=== PATIENT | male | born 1980 | race Caucasian/White ===

== ENCOUNTER → 2020-05-08 07:37 | Outpatient (REF) | payer OTHER, SELFPAY ==
--- NOTE | 2020-05-08 07:43 | CA_ITS ---
Transthoracic Echocardiogram Patient (Last, First, Middle): River Holguin J Gender: Male Date of : 1980 Age: 39 Procedure Date: 05/08/2020 Procedure Type: Transthoracic Echocardiogram Location: OP Height: 182.88 cm Weight: 154.22 kg BSA: 2.67 m2 Heart Rate: bpm BP: 104 / 78 mmHg Stone Grader: Referring MD: Pratik Covarrubias MD Symptoms: SVT Conclusions: - Technically limited study. Cannot comment about regional wall motion despite contrast use. - Normal left ventricular size and systolic function. - Moderately elevated right atrial pressure. Severe pulmonary hypertension is present. - The inferior vena cava is dilated and collapses less than 50% with inspiration. - There is abnormal septal motion with excessive respiratory change. - There is normal right ventricular systolic function. Right ventricle appears mildly dilated. Findings Procedure Information Contrast agent, definity, is being given per protocol without apparent complications. Left Ventricle Normal left ventricular size and systolic function. There is mildly increased left ventricular wall thickness. The visually estimated ejection fraction is between 55-60%. Regional wall motion abnormalities can not be excluded due to suboptimal endocardial definition. There is abnormal septal motion with excessive respiratory change. Diastolic function is indeterminate on the basis of available data. Right Ventricle There is normal right ventricular systolic function. Right ventricle appears mildly dilated. Atria The left atrium was not well visualized. The right atrium was not well visualized. Aortic Valve The aortic valve was not well visualized. Mitral Valve The mitral valve was not well visualized. Pulmonic Valve The pulmonic valve was not well visualized. Tricuspid Valve The tricuspid valve was not well visualized. Moderately elevated right atrial pressure. Severe pulmonary hypertension is present. Great Vessels All visible segments of the aorta are normal in size. The pulmonary artery was not well visualized. Venous The inferior vena cava is dilated and collapses less than 50% with inspiration. Pericardium/Pleural There is no evidence of pericardial effusion. Prior Study Comparison Changes noted compared to prior study dated: 01/29/2016. Severe pulmonary hypertension present. Septal bounce and respiratory ventricular interdependence present. Measurements 2D Linear Measurements IVSd: 0.92 0.6-0.9/0.6-1.0 cm LVIDd: 6.26 3.9-5.3/4.2-5.9 cm LVIDd Index: 2.34 2.4-3.2/2.2-3.1 cm/m2 LVIDs: 4.70 2.0-3.6 cm LVPWd: 1.27 0.7-1.1 cm Ao Root: 3.10 2.1-3.5 cm LA Diam: 3.50 2.7-3.8/3.0-4.0 cm LAIDs Index: 1.31 1.5-2.3 cm/m2 LV Mass: 372.58 67-162/88-224 g LV Mass Index: 139.54 43-95/49-115 g/m2 LVOT Diam: 2.20 3.0+(-)1.3 cm LVOT LVOT Diam: 2.20 LVOT Area: 3.80 Tricuspid Valve TR Pk Jared: 3.46 TR Pk Grad: 48.00 RA Press: 15.00 RVSP: 63.00 Great Vessels Aorta Ao Root-2D: 3.10 2.0-3.7 cm Ao Asc: 2.70 2.1-3.4 cm Updated in Other Vendor System with Status of Final Venkatesh Meek MD electronically signed on 05/09/2020 6:35:55 PM with status of Final
--- NOTE | 2020-05-08 08:30 | CA_ITS ---
Acquisition Time: 2020-05-08 08:36:24 Total Exercise Time: 00:07:37 Test Indications: Abnormal Treadmill Test Medications: PRO AIR Protocol: ALEKSANDER Max HR: 160 BPM 88% of Pred: 181 BPM Max BP: 172/086 mmHG Max Work Load: 9.7 METS Exercise stress test using Aleksander protocol total of 7 min 37 sec. METS 9.7, THR up to 88%. Tolerated well Denies any anginal sx. EKG with occ. PVC's in peak exercise and recovery. No ischemic changes. Normotensive response to exercise. Referred By: Pratik Covarrubias Overread By: Rikki Jordan
== END ==
LOC: HO.CARD 07:37
PROVIDERS: Visit Provider Internal Medicine
DX: I47.1 Supraventricular tachycardia (principal); I48.0 Paroxysmal atrial fibrillation; J45.909 Unspecified asthma, uncomplicated
CPT/HCPCS: 93017; 93306; Q9957

== ENCOUNTER → 2020-05-18 13:08 | Outpatient (REF) | payer OTHER, SELFPAY ==
--- NOTE | 2020-05-18 13:00 | HM_ITS ---
REQUESTING PROVIDER: Dr. Covarrubias. INDICATION FOR THE TEST: Supraventricular tachycardia. TECHNIQUE: The patient was hooked up to cardiac event monitor on 05/20/2020 till 06/17/2020 for a total period of 30 days. The patient was continuously monitored during this time. FINDINGS: Baseline rhythm is normal sinus rhythm with heart rate varying from 89 beats per minute to 120 beats per minute. Single recorded PVCs were noted. There were no supraventricular tachycardia noted. The patient reported 2 episodes of chest pain, correlating with sinus rhythm and sinus rhythm with PVCs. CONCLUSION: Event monitor is remarkable for: 1. Baseline normal sinus rhythm. 2. Rare isolated PVCs. 3. No episodes of supraventricular tachycardia. 4. The patient reported events of chest pain, correlate with sinus rhythm. Josef Naqvi MD NRS/MODL / [id number]
== END ==
LOC: HO.CARD 13:08
PROVIDERS: Visit Provider Internal Medicine
DX: I47.1 Supraventricular tachycardia (principal)
CPT/HCPCS: 93270

== ENCOUNTER → 2020-06-23 11:19 | Outpatient (BNVA) | payer OTHER, SELFPAY | PROVIDERS: PCP Internal Medicine; Visit Provider Physician Assistant | DX: E66.01 Morbid (severe) obesity due to excess calories (principal); Z68.42 Body mass index [BMI] 45.0-49.9, adult; I47.1 Supraventricular tachycardia; I27.20 Pulmonary hypertension, unspecified; R40.0 Somnolence; R79.81 Abnormal blood-gas level | CPT/HCPCS: 93005; 99212 ==

== ENCOUNTER → 2020-06-25 07:46 | Outpatient (BNVA) | payer OTHER, SELFPAY | PROVIDERS: PCP Internal Medicine; Referring Provider Internal Medicine; Visit Provider Surgery | DX: Z76.89 Persons encountering health services in other specified circumstances (principal) ==

== ENCOUNTER 2020-06-29 | Outpatient (REF) | payer OTHER, SELFPAY ==
[2020-07-01 13:52] LABS: H Pylori Breath Test DETECTED (NOT DETECTED)
== END 2020-06-29 00:01 | disposition home or self-care (01) ==
LOC: HO.LNP
PROVIDERS: Visit Provider Physician Assistant
DX: Z11.0 Encounter for screening for intestinal infectious diseases (principal)
CPT/HCPCS: 83013

== ENCOUNTER → 2020-06-29 09:28 | Outpatient (BNVA) | payer OTHER, SELFPAY | PROVIDERS: PCP Internal Medicine; Visit Provider Physician Assistant | DX: Z11.0 Encounter for screening for intestinal infectious diseases (principal) | CPT/HCPCS: 99211 ==

== ENCOUNTER 2020-07-14 09:54 | Outpatient (REF) | payer OTHER, SELFPAY ==
--- NOTE | 2020-07-14 09:59 | US_ITS ---
EXAMINATION: US COMPLETE ABDOMEN WITH LIVER ELASTOGRAPHY CLINICAL INFORMATION: Obesity COMPARISON: None. TECHNIQUE: Real-time imaging of the abdominal viscera. Noninvasive ultrasound liver fibrosis assessment is performed using Cullen ElastPQ point quantification shear wave elastography (pSWE) with a 5 MHz transducer. Multiple elastography samples are obtained. FINDINGS: PANCREAS: Not well visualized. ABDOMINAL AORTA: The proximal, middle, and distal aortic segments are normal in caliber. INFERIOR VENA CAVA: Visualized portions are normal. LIVER: The liver is enlarged. Liver echotexture is increased probably representing fatty infiltration. The liver is normal in shape. No focal liver lesion is seen. The right lobe measures 21 cm in length. The left lobe measures 14 cm in length. The main portal vein is patent with appropriate hepatopedal flow Shear wave elastography provides a median stiffness of 1.5 m/s (reference: normal median stiffness is 0.81 - 1.22 m/s). The IQR/median stiffness to assess sampling precision is 0.4 (reference: optimal IQR/median stiffness is under 0.3). GALLBLADDER: Normal. The gallbladder is physiologically distended without evidence of stones, sludge, polyps, wall thickening or pericholecystic fluid. COMMON BILE DUCT: Normal in caliber measuring 0.5 cm in diameter. RIGHT KIDNEY: Normal. No hydronephrosis. No renal calculi or focal parenchymal lesions. The kidney measures 12.9 cm in maximum dimension. LEFT KIDNEY: Normal. No hydronephrosis. No renal calculi or focal parenchymal lesions. The kidney measures 12 cm in maximum dimension. SPLEEN: Normal. The spleen measures 11.9 cm in maximum dimension. FREE FLUID: None. US/US abdomen comp w elastography IMPRESSION: 1. Impression: Enlarged echogenic liver probably representing fatty infiltration. Nonvisualization of the pancreas. 2. Elastography: Metavir score F2 to F3 suggestive of [id number] increased risk of developing liver fibrosis.
--- NOTE | 2020-07-14 13:04 | PFT_ITS ---
Forced vital capacity and FEV1 are both moderately reduced. FEV1/FVC ratio 68, which is slightly reduced. [id number] is markedly reduced and MVV moderately reduced. Post bronchodilator therapy, there is only slight improvement in [id number] indicating the small airway problem. Total lung capacity normal. Residual volume is moderately increased. Diffusion capacity normal. CONCLUSION: There is evidence of moderately severe obstructive airway disorder. Only minimal improvement after bronchodilator therapy is noted. Clinical correlation is recommended. MD SANDRA Mesa/MODL / [id number]
== END 2020-07-14 09:55 | disposition home or self-care (01) ==
LOC: HO.US 09:54
PROVIDERS: Visit Provider Surgery
DX: Z01.818 Encounter for other preprocedural examination (principal); E66.01 Morbid (severe) obesity due to excess calories; Z68.42 Body mass index [BMI] 45.0-49.9, adult; K21.9 Gastro-esophageal reflux disease without esophagitis; J45.41 Moderate persistent asthma with (acute) exacerbation
CPT/HCPCS: 76705; 76981; 94060; 94727; 94729

== ENCOUNTER 2020-07-16 07:46 | Outpatient (REF) | payer OTHER, SELFPAY ==
--- NOTE | 2020-07-16 07:49 | XR_ITS ---
EXAMINATION: XR CHEST CLINICAL INFORMATION: I27.20 - Pulmonary hypertension, unspecified COMPARISON: Chest radiographs 06/05/2019, 01/28/2016 TECHNIQUE: 2 views of the chest were obtained. FINDINGS: There is fine linear disc atelectasis right lateral base. The lungs otherwise clear and there is no lobar or segmental airspace consolidation or definite groundglass opacity. Symmetric increased attenuation overlying mid lung lópez is likely related to overlying soft tissues. The heart is normal in size. The vascularity is normal. There is no central vascular engorgement or distal pruning. No effusion. The hilar and mediastinal contours and bony structures are unremarkable. XR/XR chest 2V IMPRESSION: Disc atelectasis right lateral base. Vascularity unremarkable.
--- NOTE | 2020-07-16 07:49 | FL_ITS ---
EXAMINATION: XR GI SERIES CLINICAL INFORMATION: Obesity. Evaluation prior to gastric bypass reduction surgery. COMPARISON: None TECHNIQUE: Routine upper GI air-contrast study in upright and lying position was performed. FINDINGS: Following oral administration of thick barium metaphysis and granules there is normal propagation of bolus from the oral cavity through the pharynx, esophagus into stomach without any evidence of obstruction, narrowing or stricture. On placing patient supine and prone lying the course, caliber and peristalsis of stomach and the duodenal bulb is normal. The mucosal pattern of stomach, duodenum and esophagus is normal. No gastroesophageal reflux or hiatal hernia seen. FLUOROSCOPY TIME: 2.1 minute DOSE AREA PRODUCT: 55.074 uGy-m2 (microgray-meter squared) IMAGES: 45 FL/FL upper GI series IMPRESSION: Unremarkable upper GI air contrast study.
== END 2020-07-16 07:47 | disposition home or self-care (01) ==
LOC: HO.XRAY 07:46
PROVIDERS: Visit Provider Surgery
DX: Z01.818 Encounter for other preprocedural examination (principal); E66.01 Morbid (severe) obesity due to excess calories; K21.9 Gastro-esophageal reflux disease without esophagitis; Z68.42 Body mass index [BMI] 45.0-49.9, adult; J45.909 Unspecified asthma, uncomplicated; I27.20 Pulmonary hypertension, unspecified
CPT/HCPCS: 71046; 74240

== ENCOUNTER → 2020-07-20 08:43 | Outpatient (REF) | payer OTHER, SELFPAY | LOC: HO.SL 08:43 | PROVIDERS: PCP Internal Medicine; Visit Provider Nurse Practitioner Family | DX: G47.33 Obstructive sleep apnea (adult) (pediatric) (principal); R40.0 Somnolence; I27.20 Pulmonary hypertension, unspecified; E66.01 Morbid (severe) obesity due to excess calories; Z68.42 Body mass index [BMI] 45.0-49.9, adult; Z71.3 Dietary counseling and surveillance | CPT/HCPCS: 95806 ==

== ENCOUNTER → 2020-07-21 10:59 | Outpatient (BNVA) | payer OTHER, SELFPAY | PROVIDERS: PCP Internal Medicine; Visit Provider Physician Assistant | DX: Z76.89 Persons encountering health services in other specified circumstances (principal) ==

== ENCOUNTER → 2020-07-28 08:15 | Outpatient (BNVA) | payer OTHER, SELFPAY | PROVIDERS: PCP Internal Medicine; Referring Provider Internal Medicine; Visit Provider Dietitian, Registered | DX: Z76.89 Persons encountering health services in other specified circumstances (principal) ==

== ENCOUNTER → 2020-08-05 10:17 | Outpatient (REF) | payer OTHER, SELFPAY ==
--- NOTE | 2020-08-05 10:32 | NM_ITS ---
EXAMINATION: PULMONARY PERFUSION STUDY CLINICAL INFORMATION: Pulmonary hypertension. COMPARISON: No previous lung scan is available for comparison. Radiographs the chest dated 08/05/2020, the same date as this lung scan, are available for comparison. TECHNIQUE: Following the intravenous injection of 1.5 mCi Tc-99m MAA, an 8-view perfusion study was performed using a gamma scintillation camera. FINDINGS: No segmental perfusion defects are present. There is homogeneous distribution of activity bilaterally. There are no focal anatomic appearing perfusion defects present. The right hemidiaphragm is elevated. The contemporaneous chest radiographs show elevation the right hemidiaphragm that is well matched to the lung scan images described above. There is some discoid atelectasis at the right lung base. NM/NM pul perfusion IMPRESSION: Very low probability of pulmonary embolism. Elevated right hemidiaphragm.
--- NOTE | 2020-08-05 11:19 | XR_ITS ---
EXAMINATION: XR CHEST CLINICAL INFORMATION: I27.20 - Pulmonary hypertension, unspecified COMPARISON: Chest radiographs 07/16/2020, 06/05/2019 TECHNIQUE: 2 views of the chest were obtained. FINDINGS: There is disc atelectasis right base. The lungs otherwise clear. There is no lobar or segmental airspace consolidation or definite groundglass opacity. The heart is normal in size. The hilar contours are normal. No visible pulmonary artery enlargement. No shunt vascularity or peripheral vascular pruning. The mediastinal contours and bony structures are unremarkable. XR/XR chest 2V IMPRESSION: Disc atelectasis right base.
== END ==
LOC: HO.NUCMED 10:17
PROVIDERS: Visit Provider Nurse Practitioner Family
DX: I27.20 Pulmonary hypertension, unspecified (principal); R79.81 Abnormal blood-gas level
CPT/HCPCS: 71046; 78580; A9540

== ENCOUNTER → 2020-08-14 08:05 | Outpatient (BNVA) | payer OTHER, SELFPAY | PROVIDERS: PCP Internal Medicine; Visit Provider Surgery ==

== ENCOUNTER → 2020-09-10 08:08 | Outpatient (BNVA) | payer OTHER, SELFPAY | PROVIDERS: PCP Internal Medicine; Visit Provider Dietitian, Registered ==

== ENCOUNTER → 2020-09-14 08:14 | Outpatient (BNVA) | payer OTHER, SELFPAY | PROVIDERS: PCP Internal Medicine; Visit Provider Surgery ==

== ENCOUNTER → 2020-10-13 13:01 | Outpatient (BNVA) | payer OTHER, SELFPAY | PROVIDERS: PCP Internal Medicine; Visit Provider Internal Medicine | DX: I27.20 Pulmonary hypertension, unspecified (principal); G47.33 Obstructive sleep apnea (adult) (pediatric); E66.01 Morbid (severe) obesity due to excess calories; Z68.42 Body mass index [BMI] 45.0-49.9, adult | CPT/HCPCS: 99212 ==

== ENCOUNTER → 2020-10-20 09:59 | Outpatient (BNVA) | payer OTHER, SELFPAY | PROVIDERS: PCP Internal Medicine; Visit Provider Psychiatry & Neurology Neurology | DX: G47.33 Obstructive sleep apnea (adult) (pediatric) (principal) | CPT/HCPCS: 99202 ==

== ENCOUNTER 2020-11-18 01:37 | Emergency (ER) | payer OTHER, SELFPAY ==
--- NOTE | ~2020-11-18 | XR_ITS ---
EXAMINATION: XR CHEST CLINICAL INFORMATION: Chest pain COMPARISON: 08/05/2020 TECHNIQUE: Frontal view of the chest was obtained. FINDINGS: Cardiac leads overlie the chest. The lungs are well expanded. There is no focal consolidation, edema, or effusion. No pneumothorax. The cardiomediastinal silhouette is within normal limits. No acute osseous abnormality. XR/XR chest 1V IMPRESSION: No acute pulmonary finding.
[2020-11-18 01:38] VITALS: BP 150/85; PULSE 73; RESP 18; TEMP 36.7; O2SAT 96; BMI 47.5
[2020-11-18 05:12] VITALS: BP 117/74; PULSE 55; RESP 16; O2SAT 94
--- NOTE | 2020-11-18 05:16 | ECG_ITS ---
Test Reason : CHEST PAIN Blood Pressure : / mmHG Vent. Rate : 066 BPM Atrial Rate : 066 BPM P-R Int : 142 ms QRS Dur : 100 ms QT Int : 426 ms P-R-T Axes : 039 083 068 degrees QTc Int : 446 ms Normal sinus rhythm Normal ECG When compared with ECG of 05-JUN-2019 02:35, Vent. rate has decreased BY 61 BPM T wave inversion no longer evident in Inferior leads Referred By: Generic ED Physician Electronically Signed By:LUIS MANUEL RAZO MD
[2020-11-18 05:19] VITALS: PULSE 61
[2020-11-18 05:36] LABS: Basophils Absolute Auto 0.1 X10*3/uL (0.0-0.2); Basophils Percent Auto 0.5 % (0-2); Eosinophils Absolute Auto 0.4 X10*3/uL (0.0-0.4); Eosinophils Percent Auto 3.3 % (0-4); Hematocrit 46.1 % (42-52); Hemoglobin 15.1 g/dl (14.0-18.0); Imm Gran Abs Auto 0.07 X10*3/uL (0.00-0.03); Imm Gran Pct Auto 0.6 % (0.0-0.4); Lymphocytes Absolute Auto 5.2 X10*3/uL (1.2-4.9); Lymphocytes Percent Auto 47.2 % (20-40); MANUAL DIFF FLAG SCAN; Mean Corpuscular HGB Conc 32.8 g/dl (31.0-36.0); Mean Corpuscular Hemoglobin 30.6 pg (27.0-33.0); Mean Corpuscular Volume 93.3 fL (80-98); Monocytes Absolute Auto 0.9 X10*3/uL (0.1-1.2); Monocytes Percent Auto 7.8 % (2-11); Neutrophils Absolute Auto 4.5 X10*3/uL (2.0-8.3); Neutrophils Percent Auto 40.6 % (45-73); Platelet Count 239 X10*3/uL (160-400); Red Blood Count 4.94 X10*6/uL (4.60-5.80); Red Cell Distribution Width 12.4 % (11.0-16.0); SCAN SMEAR FLAG 1; White Blood Count 11.1 X10*3/uL (4.8-10.8)
--- NOTE | 2020-11-18 05:38 | ED_ITS ---
HPI - Chest Pain General Chief Complaint: Chest Pain Stated Complaint: Chest pain Time Seen by Provider: 11/18/20 05:22 Source: patient Mode of arrival: ambulatory History of Present Illness HPI narrative: 39-year-old male with multiple medical conditions presents with complaints 1 day squeezing, transient (less than 3-5 seconds), nonradiating pains that can be on either the left or the right. These events are not associated with onset of shortness of breath, dizziness, nausea, diaphoresis. Patient is highly concerned because he is currently being followed by Cardiology and just wants to make sure that there are no other problems. He denies any fevers, chills, abdominal pain/nausea/vomiting, or urinary symptoms. Related Data Previous Rx's Medication Instructions Recorded albuterol sulfate 90 mcg/actuation 2 puff INHALATION Q6H PRN 30 Days 05/22/20 aerosol inhaler #18 g albuterol sulfate 2.5 mg INHALATION QID PRN 30 Days 05/26/20 #180 ml nebulizers #1 ea 05/26/20 Allergies Allergy/AdvReac Type Severity Reaction Status Date / Time No Known Allergies Allergy Verified 10/13/20 13:28 Review of Systems Review of Systems: Pertinent positives and negatives as stated in HPI and 10 point review of systems is otherwise negative. [facility] Past Medical History Source: nursing notes reviewed Medical History Anxiety Asthma Back pain Hypersomnolence Morbid obesity with BMI of 45.0-49.9, adult PAF (paroxysmal atrial fibrillation) Positive H. pylori test Snoring SVT (supraventricular tachycardia) Surgical History No pertinent past surgical history Family History Family History Father Medical history unknown Mother Chronic mental illness Depression Obese Sister No problems noted. Sister No problems noted. Social History Social History Alcohol intake: never Smoking Status: Former smoker Substance Use Type: Marijuana Advance Directives: No Physical Exam Vital Signs: Vital Signs: Last Vital Signs Temp 98.0 F 11/18/20 01:38 Pulse 55 11/18/20 05:12 Resp 16 11/18/20 05:12 BP 117/74 11/18/20 05:12 Pulse Ox 94 11/18/20 05:12 Body Mass Index 47.5 VITAL SIGNS: Reviewed. GENERAL: Morbidly obese, Well developed, well nourished, in no acute distress. HEAD: Normocephalic/atraumatic, EYES: PERRLA, EOMI EARS: Ext canals without abnormality NOSE: Nares patent bilateral OROPHARYNX: no oral lesions noted, posterior pharynx clear NECK: Supple, no adenopathy LUNGS: Normal breath sounds. No adventitious sounds or accessory muscle use. SpO2<96> CARDIOVASCULAR: Regular rate and rhythm without noted murmurs ABDOMEN: Soft, non-tender, non-distended with bowel sounds. NEUROLOGIC: Alert and oriented x 4. Course Course Course Narrative: 39-year-old male with history and clinical presentation suggestive of possible costochondritis but will rule out cardiopulmonary etiologies. Perc score is <2%, HEART Score-2. Review of all investigations negative for acute findings and results were discussed with the patient at bedside. I sensitivity troponin was noted to be detectable but not elevated. 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 MDM - Chest Pain Lab Data Result diagrams: 11/18/20 05:30 11/18/20 05:30 Labs: Lab Results 11/18/20 11/18/20 11/18/20 Range/Units 05:30 05:30 05:30 WBC 11.1 H (4.8-10.8) X10*3/uL RBC 4.94 (4.60-5.80) X10*6/uL Hgb 15.1 (14.0-18.0) g/dl Hct 46.1 (42-52) % MCV 93.3 (80-98) fL MCH 30.6 (27.0-33.0) pg MCHC 32.8 (31.0-36.0) g/dl RDW 12.4 (11.0-16.0) % Plt Count 239 (160-400) X10*3/uL MPV 9.0 L (9.4-12.4) fL Immature Gran % (Auto) 0.6 H (0.0-0.4) % Neut % (Auto) 40.6 L (45-73) % Lymph % (Auto) 47.2 H (20-40) % Howell % (Auto) 7.8 (2-11) % Eos % (Auto) 3.3 (0-4) % Baso % (Auto) 0.5 (0-2) % Lymph # (Auto) 5.2 H (1.2-4.9) X10*3/uL Howell # (Auto) 0.9 (0.1-1.2) X10*3/uL Eos # (Auto) 0.4 (0.0-0.4) X10*3/uL Baso # (Auto) 0.1 (0.0-0.2) X10*3/uL Abs Immat Gran (auto) 0.07 H (0.00-0.03) X10*3/uL Absolute Neuts (auto) 4.5 (2.0-8.3) X10*3/uL Absolute Nucleated RBC 0.000 (0.0-0.012) X10*3/uL Nucleated RBC % (auto) 0.0 (0.0-0.2) /100WBC Smear Tech's Comments VERIFIED Hold Blue Top SEE NOTE Sodium 139 (135-145) mmol/L Potassium 4.4 (3.3-5.1) mmol/L Chloride 104 (96-108) mmol/L Carbon Dioxide 27 (22-29) mmol/L Anion Gap 12 (12-20) BUN 12 (9-16) mg/dL Creatinine 0.87 (0.5-1.4) mg/dL Estim Creat Clear Calc 177.4 Estimated GFR > 60 Random Glucose 193 H (60-115) mg/dL Calcium 8.8 (8.4-10.2) mg/dL Troponin I High Sens (<3.5-35.0) ng/L 11/18/20 Range/Units 05:30 WBC (4.8-10.8) X10*3/uL RBC (4.60-5.80) X10*6/uL Hgb (14.0-18.0) g/dl Hct (42-52) % MCV (80-98) fL MCH (27.0-33.0) pg MCHC (31.0-36.0) g/dl RDW (11.0-16.0) % Plt Count (160-400) X10*3/uL MPV (9.4-12.4) fL Immature Gran % (Auto) (0.0-0.4) % Neut % (Auto) (45-73) % Lymph % (Auto) (20-40) % Howell % (Auto) (2-11) % Eos % (Auto) (0-4) % Baso % (Auto) (0-2) % Lymph # (Auto) (1.2-4.9) X10*3/uL Howell # (Auto) (0.1-1.2) X10*3/uL Eos # (Auto) (0.0-0.4) X10*3/uL Baso # (Auto) (0.0-0.2) X10*3/uL Abs Immat Gran (auto) (0.00-0.03) X10*3/uL Absolute Neuts (auto) (2.0-8.3) X10*3/uL Absolute Nucleated RBC (0.0-0.012) X10*3/uL Nucleated RBC % (auto) (0.0-0.2) /100WBC Smear Tech's Comments Hold Blue Top Sodium (135-145) mmol/L Potassium (3.3-5.1) mmol/L Chloride (96-108) mmol/L Carbon Dioxide (22-29) mmol/L Anion Gap (12-20) BUN (9-16) mg/dL Creatinine (0.5-1.4) mg/dL Estim Creat Clear Calc Estimated GFR Random Glucose (60-115) mg/dL Calcium (8.4-10.2) mg/dL Troponin I High Sens 3.7 (<3.5-35.0) ng/L ECG Data ECG #1: Attestation: I personally reviewed and interpreted this ECG as follows: Prior ECG tracings: not available for review Interpretation: Normal sinus rhythm, HR-66, no evidence of acute ischemia, WA/QRS/QTC are within normal limits. Discharge Plan Discharge Clinical Impression: Atypical chest pain, Costochondritis Patient Disposition: Home, Self-Care Instructions: Costochondritis (ED) Additional Instructions: 1. Resume all home medications as prescribed. 2. Please follow-up with your primary care provider in the next 2-3 days for re- evaluation and referral to Cardiology as necessary. 3. Do not hesitate to return to the emergency department for any acute worsening of your symptoms. Prescriptions: No Action albuterol sulfate [ProAir HFA] 90 mcg/actuation HFA aerosol inhaler 2 puff inhalation Q6H PRN (Reason: shortness of breath or wheezing) 30 Days Q ty: 18 RF: 5 (DME) nebulizers Misc See Rx Instructions .ROUTE .MEDSUPPLY Qty: 1 RF: 0 albuterol sulfate 2.5 mg /3 mL (0.083 %) solution for nebulization 2.5 mg inhalation QID PRN (Reason: shortness of breath or wheezing) 30 Days Qty: 180 RF: 3 Referrals: Isma Waller MD [Primary Care Provider] - 2 days
[2020-11-18 05:59] LABS: SLIDE REVIEW VERIFIED
[2020-11-18 06:04] LABS: Troponin-I High Sensitivity 3.7 ng/L (<3.5-35.0)
[2020-11-18 06:13] LABS: Anion Gap 12 (12-20); Blood Urea Nitrogen 12 mg/dL (9-16); Calcium 8.8 mg/dL (8.4-10.2); Carbon Dioxide 27 mmol/L (22-29); Chloride 104 mmol/L (96-108); Creatinine Clr Calc Pharmacy 177.4; Estimated Glomerular Filt Rate > 60; Glucose Random 193 mg/dL (60-115); Potassium 4.4 mmol/L (3.3-5.1); Sodium 139 mmol/L (135-145)
== END 2020-11-18 07:03 | disposition home or self-care (01) ==
PROVIDERS: Emergency Provider Student in an Organized Health Care Education/Training Program; PCP Internal Medicine
DX: R07.89 Other chest pain (principal); M94.0 Chondrocostal junction syndrome [Tietze]; Z79.899 Other long term (current) drug therapy; Z87.891 Personal history of nicotine dependence
CPT/HCPCS: 36415; 71045; 80048; 84484; 85025; 93005; 99284

== ENCOUNTER 2020-11-18 07:37 | Outpatient (REF) | payer OTHER, SELFPAY ==
[2020-11-18 07:56] LABS: COVID-19 Test Negative (Negative)
== END 2020-11-18 07:38 | disposition home or self-care (01) ==
LOC: HO.LAB 07:37
PROVIDERS: Visit Provider Internal Medicine
DX: Z20.822 Contact with and (suspected) exposure to COVID-19 (principal)
CPT/HCPCS: 36415; 87635; C9803

== ENCOUNTER → 2020-12-22 09:30 | Outpatient (BNVA) | payer OTHER, SELFPAY | PROVIDERS: PCP Internal Medicine; Visit Provider Psychiatry & Neurology Neurology ==